=== PATIENT | male | born 1950 | race Caucasian/White ===

== ENCOUNTER 2017-01-13 11:46 | Emergency (ER) | payer MEDICARE ==
[~2017-01-13] VITALS: Ht 175.3 cm; Wt 65.0 kg
[~2017-01-13 11:46] MED LIST: ALLO300T2 PO; ASPI81TA82 PO; CARV6.25 PO; DABI150 PO; DILT180C51 PO; FENT25DI T-DERMAL; GABA300C3 PO; NITR0.4S SL; PACE200T4 PO; POTA75TA2 PO; PRIL40CA PO; TRIAPOW XX; VITA500S3 SL; ZANTTAB9 PO
[2017-01-13 11:49] VITALS: BP 109/63; PULSE 77; RESP 15; TEMP 98.2; O2SAT 97
== END 2017-01-13 14:24 | disposition left against medical advice (07) ==
LOC: NED 11:46
DX: R10.84 Generalized abdominal pain (principal)
CPT/HCPCS: 99281

== ENCOUNTER → 2017-03-04 | Day surgery (SDC) | payer MEDICARE ==
[~2017-03-04] MED LIST changes: +AMIO200T PO; +AMIO400T PO; +ASPI81CH CHEW; +CARV3.125 PO; +CARV6.252 PO; +DILT0.05 PO; +FENO160T PO; +FENT100D T-DERMAL; +GABA300C5 PO; +GENTAMICIN SULFATE 80 MG/2 ML VIAL ONE; +LACTATED RINGER'S 1000 ML INJ 1,000 ML ONE; +MIDAZOLAM HCL 2 MG/2 ML VIAL ONE; +MORPHINE SULFATE 4 MG/ML INJ ONE; +OMEP40CA2 PO; +ONDANSETRON HCL 4 MG/2 ML VIAL IV PUSH ONE; +PRAD150C PO; +PROPOFOL 200 MG/20 ML AMP IV ONE; +RAMI2.5C PO; +RANI150C PO; +ROSU10 PO; +SAW450CA2 PO; +SODIUM CHLORIDE 0.9% 100 ML ADDBAG IV ONE
--- NOTE | 2017-03-04 17:35 | TN ---
cc: YOLANDA MORAN M.D. DATE OF SURGERY 03/04/17 PREOPERATIVE DIAGNOSIS Proximal left ureteral calculus (ICD-10 code N20.1). POSTOPERATIVE DIAGNOSIS Left renal calculus (ICD-10 code of N20.0). PROCEDURE 1. Cystourethroscopy with left ureteroscopy and holmium laser lithotripsy (CPT code 13567). 2. Cystourethroscopy with left ureteral stent removal. INDICATION Mr. Slade is a 66-year-old gentleman who previously underwent urgent stent placement for 6 mm proximal ureteral stone at an outside institution and for insurance reasons had to transfer his care to us. He presents now for definitive treatment of the stone. Findings are normal urethra. The prostatic urethra shows bilateral hyperplasia with minimal obstruction and an open bladder neck. The ureteral orifice on the right normal size, shape and position, effluxing clear urine. On the left there is bullous edema surrounding the distal portion of a double-J ureteral stent with some encrustation of the stent. The remainder of the bladder was unremarkable, although, there was some small stone fragments within the bladder. No masses, other abnormal mucosa or significant trabeculation and no diverticula or cellules. The ureteroscopy on the left showed some bullous edema of the ureter but open all the is for the entire length of the ureter and the stone was found in the renal pelvis. PROCEDURE IN DETAIL The procedure was as follows, the procedure as well as the risks and benefits were explained to the patient. Informed consent was obtained. The patient was taken to the major operative theater where he was placed in supine position. The patient was identified as well as the operative site. A universal time-out was performed in the standard fashion. At this time general anesthetic and prophylactic intravenous antibiotics consisting of gentamicin 80 milligrams was administered. After adequate anesthetic his groin and genitalia were prepped and draped in the usual sterile fashion. At this time a 22.5 Telugu cystoscope with a 30 degree lens was inserted into the urethra and bladder with the above findings. Attention was directed to the left ureteral orifice where a grasping forceps was used to grasp the distal end of the left ureteral stent. It was pulled out to the meatus where attempts at passing a 0.035 inch guidewire through the opening were unsuccessful due to encrustation. At this time the cystoscope was placed back into the urethra alongside the stent which was left in place and then attention was directed to the left ureteral orifice where the 0.035 inch guidewire was able to be passed into the orifice and up the ureter and into the renal pelvis under fluoroscopic guidance. Prior to performing the procedure fluoroscopy showed that the stone was now in the renal pelvis and not in the proximal ureter, it must have been moved during the placement of the stent at the outside institution. At this time the cystoscope was removed as was the stent and a semi rigid mini ureteroscope was then placed under direct vision up the ureter, all the way traversing the entire ureter and into the renal pelvis and note again confirming no stone identified within the ureter. Decision was made to use a flexible scope and perform lithotripsy of the stone since it was too big to basket. The ureteroscope was removed after the placement of another guidewire. At this time a flexible ureteroscope was then placed over the working wire up the ureter and into the renal pelvis. The working wire was removed. There was a safety wire that was attached to the drape, it was kept in place during the procedure. At this time using a holmium laser lithotripsy and a 273 micron fiber at a setting of 5 joules holmium laser lithotripsy was performed and the stone was fragmented into approximately 1 mm fragments. The renal pelvis was inspected. No additional stones were identified and there was no trauma to the renal pelvis. At that time a decision was made not to leave the stent. The ureteroscope was removed as well as the stent. The cystoscope placed back in the bladder after stone fragments were removed and sent for crystallographic analysis. The bladder was decompressed, cystoscope removed. The patient tolerated the procedure well, emerged from anesthetic without difficulty and transferred to the recovery room in stable condition to be discharged home when criteria is met. There are no obvious complications. MD SAWYER Benites/MICHEL /5:14 PM /5:23 PM
== END | disposition home or self-care (01) ==
LOC: ESDC 12:39
PROVIDERS: ATTEND Urology
DX: N20.1 Calculus of ureter (principal); N20.0 Calculus of kidney
CPT/HCPCS: 00918; 52353; 76000; J1580; J2250; J2270; J2405; J3010; J7120

== ENCOUNTER 2017-03-30 13:26 | Inpatient (IN) | payer MEDICARE ==
[~2017-03-30] VITALS: Ht 175.3 cm; Wt 64.0 kg
[2017-03-30] VITALS (11 sets, daily range): BP systolic 97–138; BP diastolic 64–79; PULSE 70–92; RESP 16–20; TEMP 98.2–99; O2SAT 95–98
[~2017-03-30 13:26] MED LIST changes: -AMIO200T PO; -AMIO400T PO; -ASPI81CH CHEW; -CARV3.125 PO; -CARV6.252 PO; -DILT0.05 PO; -FENO160T PO; -FENT100D T-DERMAL; -GABA300C5 PO; -GENTAMICIN SULFATE 80 MG/2 ML VIAL ONE; -LACTATED RINGER'S 1000 ML INJ 1,000 ML ONE; -MIDAZOLAM HCL 2 MG/2 ML VIAL ONE; -MORPHINE SULFATE 4 MG/ML INJ ONE; -OMEP40CA2 PO; -ONDANSETRON HCL 4 MG/2 ML VIAL IV PUSH ONE; -PRAD150C PO; -PROPOFOL 200 MG/20 ML AMP IV ONE; -RAMI2.5C PO; -RANI150C PO; -ROSU10 PO; -SAW450CA2 PO; -SODIUM CHLORIDE 0.9% 100 ML ADDBAG IV ONE
[2017-03-30] MEDS ORDERED: SODIUM CHLORIDE 0.9% FLUSH 10 ML FLUSH IVF PRN (13:45)
--- NOTE | 2017-03-30 13:58 | RADRPT ---
EXAM DATE/TIME: 03/30/2017 13:52 [facility] COMPARISON: No previous studies available for comparison. INDICATIONS : Chest pain. MEDICAL HISTORY : None. SURGICAL HISTORY : Pacemaker. ENCOUNTER: Initial ACUITY: 1 day PAIN SCORE: 10/29 LOCATION: Bilateral chest FINDINGS: No infiltrate, effusion or pneumothorax. Normal heart size. Cardiac pacer/defibrillator present. Thoracic aorta is mildly tortuous. CONCLUSION: No evidence of acute cardiopulmonary disease. Anshul Hickey MD on March 30, 2017 at 13:55 Board Certified Radiologist. This report was verified electronically.
[2017-03-30 14:15] LABS: AUTOMATED NEUTROPHIL # 3.6 TH/MM3 (1.8-7.7); BASOPHIL % 0.7 % (0.0-2.0); EOSINOPHIL # 0.3 TH/MM3 (0-0.4); EOSINOPHIL % 5.3 % (0.0-4.0); HEMATOCRIT 37.9 % (39.0-51.0); HEMO FLAGS DIFF FINAL; LYMPH % 24.2 % (9.0-44.0); LYMPHOCYTE # 1.4 TH/MM3 (1.0-4.8); MEAN CELL VOLUME 93.6 FL (80.0-100.0); MEAN CORPUSCULAR HEMOGLOBIN 32.3 PG (27.0-34.0); MEAN CORPUSCULAR HGB CONC 34.6 % (32.0-36.0); MONO % 9.7 % (0.0-8.0); NEUT % 60.1 % (16.0-70.0); PLATELET COUNT 216 TH/MM3 (150-450); RED BLOOD COUNT 4.05 MIL/MM3 (4.50-5.90); RED CELL DISTRIBUTION WIDTH 12.5 % (11.6-17.2); WHITE BLOOD COUNT 5.9 TH/MM3 (4.0-11.0)
--- NOTE | 2017-03-30 14:17 | PD ---
HPI Chief Complaint: Cardiac Complaint Time Seen by Provider: 13:38 Travel History International Travel<30 days: No Contact w/Intl Traveler<30days: No Traveled to known affect area: No History of Present Illness HPI 66-year-old male with history of CAD, status post CABG, A. fib, COPD, previous [facility], has a an AICD, presents to the ER because he states that his defibrillator fired 3 times this afternoon while he was getting out of the shower. He states that the first time, he felt a little dizzy, and was getting out of the shower when it fired. He states the second time was when he was trying to get his phone, and the third time was after he got done with making a phone call. He denies any chest pains, shortness of breath, palpitations, dizziness, or any other symptoms. Modifying Factors: None Associated Signs & Symptoms: Defibrillator fired 3 Risk Factors: Cardiac history PFSH Past Medical History Hx Anticoagulant Therapy: Yes (asa) Arthritis: Yes Asthma: Yes Atrial Fibrillation: Yes Blood Disorders: No Cancer: No Cardiac Catheterization: Yes Cardiovascular Problems: Yes (pacer) High Cholesterol: Yes Chemotherapy: No Chest Pain: No COPD: Yes Diabetes: No Endocrine: No Gastrointestinal Disorders: No Glaucoma: No Genitourinary: No Hepatitis: No Hiatal Hernia: No Hypertension: No Immune Disorder: No Musculoskeletal: Yes (multiple injuries) Neurologic: No Psychiatric: No Reproductive: No Respiratory: Yes (COPD) Integumentary: No Myocardial Infarction: Yes Radiation Therapy: No Thyroid Disease: No ?: Not Past Surgical History Abdominal Surgery: Yes (bilat hernia repair--10/17/08) Body Medical Devices: BRIGHT IN RIGHT UPPER LEG REMOVED Cardiac Surgery: No Coronary Artery Bypass Graft: Yes (x5) Ear Surgery: No Endocrine Surgery: No Eye Surgery: Yes (lens implants bilat) Genitourinary Surgery: No Gynecologic Surgery: No Neurologic Surgery: No Oral Surgery: No Thoracic Surgery: No Other Surgery: Yes (recent hernia surg--2 knee surg) Social History Alcohol Use: Yes Tobacco Use: Yes (1-1.5 PPD) Substance Use: No Allergies-Medications (Allergen,Severity, Reaction): Coded Allergies: No Known Allergies (Verified , 03/30/17) Reported Meds & Prescriptions Reported Meds & Active Scripts Active Reported Fenofibrate 160 Mg Tab 160 Mg PO DAILY Carvedilol 6.25 Mg Tab 6.25 Mg PO BID Crestor (Rosuvastatin Calcium) 10 Mg Tab 10 Mg PO DAILY Ranitidine (Ranitidine HCl) 150 Mg Cap 150 Mg PO BID Omeprazole 40 Mg Cap 40 Mg PO DAILY Saw Rowlett (Serenoa Repens) 450 Mg Cap 450 Mg PO DAILY Fentanyl Patch 72 HR (Fentanyl) 100 Mcg/Hr Patch 100 Mcg T-DERMAL Q72H Remove old patch when new one placed. Pradaxa (Dabigatran) 150 Mg Cap 150 Mg PO BID Review of Systems Except as stated in HPI: all other systems reviewed are Neg Physical Exam Narrative GENERAL: Well-developed elderly white male patient currently in no acute distress but awake and oriented 3. SKIN: Focused skin assessment warm/dry. HEAD: Atraumatic. Normocephalic. EYES: Pupils equal and round. No scleral icterus. No injection or drainage. ENT: No nasal bleeding or discharge. Mucous membranes pink and moist. NECK: Trachea midline. No JVD. CARDIOVASCULAR: Fast and irregularly irregular. RESPIRATORY: No accessory muscle use. Clear to auscultation. Breath sounds equal bilaterally. GASTROINTESTINAL: Abdomen soft, non-tender, nondistended. Hepatic and splenic margins not palpable. MUSCULOSKELETAL: No obvious deformities. No clubbing. No cyanosis. No edema. NEUROLOGICAL: Awake and alert. No obvious cranial nerve deficits. Motor grossly within normal limits. Normal speech. PSYCHIATRIC: Appropriate mood and affect; insight and judgment normal. Data Data Last Documented VS Vital Signs Date Time Temp Pulse Resp B/P Pulse Ox O2 Delivery O2 Flow Rate FiO2 03/30/17 14:36 75 18 97/64 97 03/30/17 13:53 Room Air 03/30/17 13:43 99.0 Orders Electrocardiogram (03/30/17 13:38) Ckmb (Isoenzyme) Profile (03/30/17 13:38) Complete Blood Count With Diff (03/30/17 13:38) Comprehensive Metabolic Panel (03/30/17 13:38) Magnesium (Mg) (03/30/17 13:38) Prothrombin Time / Inr (Pt) (03/30/17 13:38) Act Partial Throm Time (Ptt) (03/30/17 13:38) Troponin I (03/30/17 13:38) Chest, Single Ap (03/30/17 13:38) Ecg Monitoring (03/30/17 13:38) Bilateral Bp Monitoring (03/30/17 13:38) Iv Access Insert/Monitor (03/30/17 13:38) Oximetry (03/30/17 13:38) Oxygen Administration (03/30/17 13:38) Sodium Chloride 0.9% Flush (Ns Flush) (03/30/17 13:45) Place In Observation (03/30/17 ) Vital Signs (Adult) HERIBERTO.Q4H (03/30/17 15:38) Activity Oob Ad Chhaya (03/30/17 15:38) Running Instructor / Telemetry HERIBERTO.Q8H (03/30/17 15:38) Intake + Output 06,14,22 (03/30/17 15:38) Resp Oxygen Gentry C Titrat 1-4 L (03/30/17 ) Sodium Chloride 0.9% Flush (Ns Flush) (03/30/17 21:00) Labs Laboratory Tests Test 03/30/17 13:55 White Blood Count 5.9 TH/MM3 Red Blood Count 4.05 MIL/MM3 Hemoglobin 13.1 GM/DL Hematocrit 37.9 % Mean Corpuscular Volume 93.6 FL Mean Corpuscular Hemoglobin 32.3 PG Mean Corpuscular Hemoglobin 34.6 % Concent Red Cell Distribution Width 12.5 % Platelet Count 216 TH/MM3 Mean Platelet Volume 9.5 FL Neutrophils (%) (Auto) 60.1 % Lymphocytes (%) (Auto) 24.2 % Monocytes (%) (Auto) 9.7 % Eosinophils (%) (Auto) 5.3 % Basophils (%) (Auto) 0.7 % Neutrophils # (Auto) 3.6 TH/MM3 Lymphocytes # (Auto) 1.4 TH/MM3 Monocytes # (Auto) 0.6 TH/MM3 Eosinophils # (Auto) 0.3 TH/MM3 Basophils # (Auto) 0.0 TH/MM3 CBC Comment DIFF FINAL Differential Comment Prothrombin Time 11.7 SEC Prothromb Time International 1.1 RATIO Ratio Activated Partial 31.3 SEC Thromboplast Time Sodium Level 141 MEQ/L Potassium Level 4.7 MEQ/L Chloride Level 107 MEQ/L Carbon Dioxide Level 26.9 MEQ/L Anion Gap 7 MEQ/L Blood Urea Nitrogen 16 MG/DL Creatinine 1.18 MG/DL Estimat Glomerular Filtration 62 ML/MIN Rate Random Glucose 92 MG/DL Calcium Level 8.4 MG/DL Magnesium Level 1.9 MG/DL Total Bilirubin 0.4 MG/DL Aspartate Amino Transf 22 U/L (AST/SGOT) Alanine Aminotransferase 15 U/L (ALT/SGPT) Alkaline Phosphatase 88 U/L Total Creatine Kinase 32 U/L Troponin I LESS THAN 0.02 NG/ML Total Protein 7.0 GM/DL Albumin 3.6 GM/DL MDM Medical Decision Making Medical Screen Exam Complete: Yes Emergency Medical Condition: Yes Medical Record Reviewed: Yes Interpretation(s) EKG shows atrial flutter with rapid ventricular response at a rate of 140 bpm. Laboratory Tests Test 03/30/17 13:55 Red Blood Count 4.05 MIL/MM3 (4.50-5.90) Hematocrit 37.9 % (39.0-51.0) Monocytes (%) (Auto) 9.7 % (0.0-8.0) Eosinophils (%) (Auto) 5.3 % (0.0-4.0) Prothrombin Time 11.7 SEC (9.8-11.6) Activated Partial 31.3 SEC Thromboplast Time (24.3-30.1) Estimat Glomerular Filtration 62 ML/MIN (>89) Rate Calcium Level 8.4 MG/DL (8.5-10.1) Total Creatine Kinase 32 U/L (39-308) Troponin I LESS THAN 0.02 NG/ML (0.02-0.05) Last 24 hours Impressions Chest X-Ray 03/30/17 1338 Signed Impressions: Service Date/Time: Thursday, March 30, 2017 13:52 - CONCLUSION: No evidence of acute cardiopulmonary disease. Anshul Hickey MD Differential Diagnosis Defibrillator fired 3evaluate for dysrhythmia, rule out metabolic issues versus ACS Narrative Course Patient is not symptomatic currently. He denies any chest pains. EKG shows that he is having atrial flutter but the rate slows down on its own I did not need to give him any further medications. His lab work is not significant for significant metabolic issues. At this point, case was discussed with family practice resident service for admission for further evaluation. Pacemaker episodes been called to evaluate the case. Diagnosis Primary Impression: Defibrillator discharge Admitting Information Admitting Physician Requests: Admit Soonthjose,Rewadee MD Mar 30, 2017 14:17
[2017-03-30 14:29] LABS: ALT (GPT) 15 U/L (12-78); ANION GAP 7 MEQ/L (5-15); AST (GOT) 22 U/L (15-37); BICARBONATE 26.9 MEQ/L (21.0-32.0); BLOOD UREA NITROGEN 16 MG/DL (7-18); CHLORIDE 107 MEQ/L (98-107); GLOMERULAR FILTRATION RATE 62 ML/MIN (>89); MAGNESIUM 1.9 MG/DL (1.5-2.5); POTASSIUM 4.7 MEQ/L (3.5-5.1); SODIUM (NA) 141 MEQ/L (136-145)
[2017-03-30 14:30] LABS: APTT (PATIENT) 31.3 SEC (24.3-30.1); INTERNATIONAL NORMALIZED RATIO 1.1 RATIO; PROTHROMBIN TIME - PATIENT 11.7 SEC (9.8-11.6)
[2017-03-30 14:33] LABS: ALKALINE PHOSPHATASE 88 U/L (45-117); TOTAL BILIRUBIN ADULT 0.4 MG/DL (0.2-1.0)
[2017-03-30 14:36] LABS: CREATINE KINASE 32 U/L (39-308)
[2017-03-30] MEDS ORDERED: PRAD150C PO (14:41)
[2017-03-30] MEDS ORDERED: FENT100D T-DERMAL (14:41)
[2017-03-30] MEDS ORDERED: CARV6.252 PO (14:41)
[2017-03-30] MEDS ORDERED: FENO160T PO (14:41)
[2017-03-30] MEDS ORDERED: SAW450CA2 PO (14:41)
[2017-03-30] MEDS ORDERED: OMEP40CA2 PO (14:41)
[2017-03-30] MEDS ORDERED: RANI150C PO (14:41)
[2017-03-30] MEDS ORDERED: ROSU10 PO (14:41)
--- NOTE | 2017-03-30 15:51 | HHI.HP ---
HPI Service Family Medicine Primary Care Physician No Primary Care Physician Admission Diagnosis defibrillator fired 3 Diagnoses: International Travel<30 Days: No Contact w/Intl Traveler<30days: No Known Affected Area: No History of Present Illness Mr. Slade is a 66 y/o M with history of atrial fibrillation and MD s/p 5x catheterizations with sent placement presents s/p his internal cardiac defibrillator firing x3. He states that earlier today he was getting out of the shower when his ICD fired 3 times in a row approximately 3 minutes apart. He was able to walk out of the bathroom and call 911 before the ICD fired the third and final time. Before the ICD went off he denied any symptoms such as tachycardia, angina, or palpitations. He was "dizzy" after the episode, but did not lose consciousness or fall. He reports that this is the second time his ICD has gone off. The first time the ICD fired 5 times, and again he reports he was asymptomatic at that time. He is a patient of Dr. Warner, cardiology. (Darian Trevino MD R1) Review of Systems Constitutional: DENIES: Fever, Chills Eyes: DENIES: Blurred vision, Double Vision Ears, nose, mouth, throat: DENIES: Throat pain, Running Nose Respiratory: DENIES: Cough, Shortness of breath Cardiovascular: COMPLAINS OF: Chest pain (Tightness at ICD site), DENIES: Palpitations Gastrointestinal: DENIES: Abdominal pain, Diarrhea, Nausea, Vomiting Genitourinary: DENIES: Dysuria Musculoskeletal: COMPLAINS OF: Back pain (Chronic lower back pain), DENIES: Joint pain Integumentary: DENIES: Rash Hematologic/lymphatic: DENIES: Lymphadenopathy Neurologic: DENIES: Headache Psychiatric: DENIES: Mood changes (Darian Trevino MD R1) Past Family Social History Past Medical History Atrial fibrillation History of MD with ICD placed Past Surgical History Bilateral hernia repair Job in right leg Cath 5 with stenting Cataract surgery (Darain Trevino MD R1) Allergies: Coded Allergies: No Known Allergies (Verified , 03/30/17) Family History Mother - Alzheimer's, Father - MD at 62, Sister - from malignancy Sister - gallbladder problems Social History Smoke - Cigars currently with history of tobacco, 34 years Alcohol - Occasional use, 4-5 beers per occasion Illicit - History, but denies any recent use, last use in 12/26 Lives at home with significant other. Served in [employer]. (Darian Trevino MD R1) Physical Exam Vital Signs Vital Signs Date Time Temp Pulse Resp B/P Pulse Ox O2 Delivery O2 Flow Rate FiO2 03/30/17 14:36 75 18 97/64 97 03/30/17 13:53 86 18 103/79 97 Room Air 104/77 03/30/17 13:53 97 Room Air 03/30/17 13:43 146 20 97 Room Air 03/30/17 13:43 99.0 90 18 104/74 97 Room Air 03/30/17 13:34 99.0 92 20 104/74 96 Physical Exam GENERAL: 66-year-old male lying in bed in no acute distress SKIN: Warm and dry. No rash. HEENT: Atraumatic, normocephalic with EOMI. PERRLA. Oropharynx clear with no erythema or exudate. No rhinorrhea. No LAD or JVD appreciated. CARDIOVASCULAR: Regular rate and rhythm without obvious murmurs, gallops, or rubs. ICD located on the left chest without tenderness to palpation RESPIRATORY: Clear to auscultation bilaterally with no CRW. No increased work of breathing. GASTROINTESTINAL: Abdomen soft, non-tender, nondistended with positive bowel sounds. No masses or hepatosplenomegaly appreciated MUSCULOSKELETAL: No cyanosis or edema. Strength grossly WNL. No calf tenderness. BACK: Nontender without obvious deformity. No CVA tenderness. NEURO/PSYCH: Afocal. Awake, alert, and oriented x3. Normal speech and insight. Grossly within normal limits. Laboratory Laboratory Tests Test 03/30/17 13:55 White Blood Count 5.9 Red Blood Count 4.05 Hemoglobin 13.1 Hematocrit 37.9 Mean Corpuscular Volume 93.6 Mean Corpuscular Hemoglobin 32.3 Mean Corpuscular Hemoglobin 34.6 Concent Red Cell Distribution Width 12.5 Platelet Count 216 Mean Platelet Volume 9.5 Neutrophils (%) (Auto) 60.1 Lymphocytes (%) (Auto) 24.2 Monocytes (%) (Auto) 9.7 Eosinophils (%) (Auto) 5.3 Basophils (%) (Auto) 0.7 Neutrophils # (Auto) 3.6 Lymphocytes # (Auto) 1.4 Monocytes # (Auto) 0.6 Eosinophils # (Auto) 0.3 Basophils # (Auto) 0.0 CBC Comment DIFF FINAL Differential Comment Prothrombin Time 11.7 Prothromb Time International 1.1 Ratio Activated Partial 31.3 Thromboplast Time Sodium Level 141 Potassium Level 4.7 Chloride Level 107 Carbon Dioxide Level 26.9 Anion Gap 7 Blood Urea Nitrogen 16 Creatinine 1.18 Estimat Glomerular Filtration 62 Rate Random Glucose 92 Calcium Level 8.4 Magnesium Level 1.9 Total Bilirubin 0.4 Aspartate Amino Transf 22 (AST/SGOT) Alanine Aminotransferase 15 (ALT/SGPT) Alkaline Phosphatase 88 Total Creatine Kinase 32 Troponin I LESS THAN 0.02 Total Protein 7.0 Albumin 3.6 (Darian Trevino MD R1) Result Diagram: 03/30/17 1355 03/30/17 1355 Imaging Last 72 hours Impressions Chest X-Ray 03/30/17 1338 Signed Impressions: Service Date/Time: Friday, March 30, 2017 13:52 - CONCLUSION: No evidence of acute cardiopulmonary disease. Anshul Hickey MD (Darian Trevino MD R1) Assessment and Plan Assessment and Plan Mr. Slade is a 66 y/o M with history of atrial fibrillation and MD s/p 5x catheterizations with sent placement presents s/p his internal cardiac defibrillator firing x3. He will be admitted for observation and possible cardiac workup pending clinical course. Code Status FULL CODE Discussed Condition With Dr. Green, ER Physician Dr. Melecio Ng (Darian Trevino MD R1) Attending Attestation Patient seen and examined. Case reviewed and discussed with the resident team. Agree with plan of care as discussed with me and documented in the resident note. (Ronda Majano MD) Problem List: (1) Defibrillator discharge Status: Acute Plan: Patient with ICD which fired 3 times this morning without symptoms per patient report. Second time his ICD has fired with patient reporting he was asymptomatic beforehand. Per ER staff, ICD interrogation showed defibrillation administered secondary to tachycardia. Chest x-ray: No cardiopulmonary disease CBC: Within normal limits CMP: Within normal limits BMP: Pending Troponin: 0.02, trend with EKG 2 every 6 hours Coagulation panel: PT 11.7, INR 1.1, PTT 31.3 Consult cardiology, appreciate recommendations Cardiac telemetry Echocardiogram: Pending Medications: Continue Pradaxa 150 mg twice a day Continue Coreg 6.25 mg twice a day (2) Atrial fibrillation Status: Acute Plan: Patient with history of atrial fibrillation anticoagulated on Pradaxa. Currently rate controlled. Please see plan as above (3) Chronic disease Status: Acute Plan: BPHcontinue saw palmetto Hyperlipidemiacontinue rosuvastatin, fenofibrate GERDcontinue omeprazole 40 mg daily Chronic back paincontinue fentanyl patch 100 g every third day (4) No contraindication to deep vein thrombosis (DVT) prophylaxis Status: Acute Plan: Patient anticoagulated on Pradaxa for atrial fibrillation (5) Nutrition, metabolism, and development symptoms Status: Acute Plan: Diet: Heart healthy as tolerated Fluids: Tolerating fluids by mouth Electrolytes: Within normal limits, continue to monitor Prophylaxis: DuoNeb's when necessary for shortness of breath, Zofran when necessary for nausea or vomiting, Tylenol when necessary for pain or fever, Alyse -Colace when necessary for constipation, clonidine when necessary for BP greater than 180/100 (Darian Trevino MD R1) Darian Trevino MD R1 Mar 30, 2017 15:51 Ronda Majano MD Mar 31, 2017 11:43
--- NOTE | 2017-03-30 16:26 | HHI.FPPN ---
Subjective Remarks Patient was seen, examined and discussed with medicine team. This is a 66-year-old male, patient of Dr. Julio C La, who was in the shower this morning and when he exited the shower, felt a little bit of dizziness but noted that his AICD fired. He went to the other room to use his phone and it fired again, he did call 911 and after the phone call his AICD fired the third time. He denies having any symptoms other than the aforementioned dizziness. No chest pain, no palpitations or tachycardia, no nausea or sweats, and the only complaint he has is that he has a little bit of soreness in the area of where his pacer defibrillator is implanted. He does have history of [place] in 2008, he had a heart catheterization with placement of 5 stents. History of COPD and atrial fibrillation. Please see history and physical examination for this admission for additional historical details including past, family, social history and review of systems. He does drink occasional alcohol, long tobacco history, currently no illicits. He is a [place] . He has chronic low back pain for which she uses fentanyl patch 100 g every 3 days. Objective Vitals Vital Signs Date Time Temp Pulse Resp B/P Pulse Ox O2 Delivery O2 Flow Rate FiO2 03/30/17 14:36 75 18 97/64 97 03/30/17 13:53 86 18 103/79 97 Room Air 104/77 03/30/17 13:53 97 Room Air 03/30/17 13:43 146 20 97 Room Air 03/30/17 13:43 99.0 90 18 104/74 97 Room Air 03/30/17 13:34 99.0 92 20 104/74 96 Result Diagram: 03/30/17 1355 03/30/17 1355 Other Results Laboratory Tests Test 03/30/17 13:55 Red Blood Count 4.05 MIL/MM3 Hematocrit 37.9 % Monocytes (%) (Auto) 9.7 % Eosinophils (%) (Auto) 5.3 % Prothrombin Time 11.7 SEC Activated Partial 31.3 SEC Thromboplast Time Estimat Glomerular Filtration 62 ML/MIN Rate Calcium Level 8.4 MG/DL Total Creatine Kinase 32 U/L Troponin I LESS THAN 0.02 NG/ML Imaging Last Impressions Chest X-Ray 03/30/17 5488 Signed Impressions: Service Date/Time: Thursday, March 30, 2017 13:52 - CONCLUSION: No evidence of acute cardiopulmonary disease. Anshul Hickey MD Objective Remarks O. CONSTITUTIONAL/GEN: normally nourished, in NAD. EYES: conjunctiva normal, PERRLA, EOMI. ENT: Mouth and pharynx normal. NECK: Supple LUNGS: clear A-P, respiratory effort is normal. CARDIOVASCULAR: RR without murmur or gallop. No significant edema. GI/ABD: soft without masses, without organomegaly. Active bowel sounds : no CVA tenderness NEURO: No focal deficits. SKIN: color normal, no rashes noted. Multiple tattoos HEME/LYMPH: no bruising, petechia or significant adenopathy MUSC: back is normal in appearance. Extremities are normal in appearance. PSYCH/MENTAL STATUS: Alert and oriented x 3. A/P Assessment and Plan 66-year-old male with extensive cardiac history here today because his implanted defibrillator fired 3 times at home Attending Attestation Patient seen and examined. Case reviewed and discussed with the resident team. Agree with plan of care as discussed with me and documented in the resident note. Ronda Majano MD Mar 30, 2017 16:26
[2017-03-30] MEDS ORDERED: fentaNYL 100 MCG/HR PATCH T-DERMAL SCH (17:00)
[2017-03-30] MEDS ORDERED: RESP: ALBUTEROL 2.5 MG/IPRATROPIUM 0.5 MG NEB (PRN) NEB (17:15)
[2017-03-30] MEDS ORDERED: DOCUSATE SODIUM 50 MG/SENNA 8.6 MG TAB PO PRN (17:15)
[2017-03-30] MEDS ORDERED: cloNIDine HCL 0.1 MG TAB PO PRN (17:15)
[2017-03-30] MEDS ORDERED: ONDANSETRON ODT 4 MG TAB PO PRN (17:15)
[2017-03-30] MEDS ORDERED: ACETAMINOPHEN 500 MG CPLT PO PRN (17:15)
[2017-03-30] MEDS ORDERED: DILT0.05 PO (17:17)
[2017-03-30] MEDS ORDERED: GABA300C5 PO (17:17)
[2017-03-30] MEDS ORDERED: RAMI2.5C PO (17:17)
[2017-03-30] MEDS ORDERED: ASPI81CH CHEW (17:17)
--- NOTE | 2017-03-30 19:40 | HHI.DCPOC ---
Discharge Care Plan Diagnosis: (1) Defibrillator discharge Goals to Promote Your Health * To prevent worsening of your condition and complications * To maintain your health at the optimal level Directions to Meet Your Goals Take your medications as prescribed Follow your dietary instruction Follow activity as directed Keep your appointments as scheduled Take your immunizations and boosters as scheduled If your symptoms worsen call your PCP, if no PCP go to Urgent Care Center or Emergency Room Smoking is Dangerous to Your Health. Avoid second hand smoke Call the 24-hour hour crisis hotline for domestic abuse at Darian Trevino MD R1 Mar 30, 2017 19:40
[2017-03-30] MEDS: SODIUM CHLORIDE 0.9% FLUSH 10 ML FLUSH IV FLUSH SCH (20:31)
[2017-03-30] MEDS: FAMOTIDINE 20 MG TAB PO SCH (20:31)
[2017-03-30] MEDS: DABIGATRAN ETEXILATE 150 MG CAP PO SCH (20:31)
[2017-03-30] MEDS: CARVEDILOL 6.25 MG TAB PO SCH (20:31)
[2017-03-30] MEDS: GABAPENTIN 300 MG CAP PO SCH (20:31)
[2017-03-31] VITALS (28 sets, daily range): BP systolic 74–105; BP diastolic 50–73; PULSE 59–95; RESP 18–20; TEMP 97.9–98.8; O2SAT 94–98
[2017-03-31 02:23] LABS: HEMATOCRIT 35.6 % (39.0-51.0); MEAN CELL VOLUME 93.5 FL (80.0-100.0); MEAN CORPUSCULAR HEMOGLOBIN 32.1 PG (27.0-34.0); MEAN CORPUSCULAR HGB CONC 34.4 % (32.0-36.0); PLATELET COUNT 195 TH/MM3 (150-450); RED BLOOD COUNT 3.81 MIL/MM3 (4.50-5.90); RED CELL DISTRIBUTION WIDTH 12.7 % (11.6-17.2); REVIEW FLAG FINAL; WHITE BLOOD COUNT 6.2 TH/MM3 (4.0-11.0)
[2017-03-31 03:25] LABS: MAGNESIUM 2.1 MG/DL (1.5-2.5); POTASSIUM 3.8 MEQ/L (3.5-5.1)
[2017-03-31] MEDS ORDERED: FENOFIBRATE 145 MG TAB PO SCH (09:00)
[2017-03-31] MEDS ORDERED: NON-FORMULARY DRUG (Saw Palmetto (Serenoa Repens) 450 MG) PO SCH (09:00)
[2017-03-31] MEDS ORDERED: DILTIAZEM-CD 180 MG CAP ER PO SCH (09:00)
[2017-03-31] MEDS: DABIGATRAN ETEXILATE 150 MG CAP PO SCH ×2 (09:35→21:04)
[2017-03-31] MEDS: FAMOTIDINE 20 MG TAB PO SCH ×2 (09:35→21:04)
[2017-03-31] MEDS: PANTOPRAZOLE SOD 40 MG DELAYED RELEASE TAB PO SCH (09:35)
[2017-03-31] MEDS: ASPIRIN 81 MG CHEW TAB CHEW SCH (09:36)
[2017-03-31] MEDS: RAMIPRIL 2.5 MG CAP PO SCH (09:36)
[2017-03-31] MEDS: ATORVASTATIN 20 MG TAB PO SCH (09:36)
[2017-03-31] MEDS: CARVEDILOL 6.25 MG TAB PO SCH ×3 (09:36→22:13)
[2017-03-31] MEDS: SODIUM CHLORIDE 0.9% FLUSH 10 ML FLUSH IV FLUSH SCH ×2 (09:36→21:00)
--- NOTE | 2017-03-31 11:38 | EKG ---
Date Performed: 03/30/2017 Time Performed: 13:39:21 PTAGE: 66 years EKG: Atrial tachycardia with 2:1 conduction Atrial tachycardia is new from the old tracing. PREVIOUS TRACING : 06/14/2016 06.04 DOCTOR: Russell Cam Interpretating Date/Time 03/31/2017 11:38:01
--- NOTE | 2017-03-31 11:38 | EKG ---
Date Performed: 03/31/2017 Time Performed: 02:01:36 PTAGE: 66 years EKG: Sinus rhythm with borderline 1st degree A-V block Prolonged QT interval Low QRS voltages in limb leads Borderline ECG Patient is no longer in atrial tachycardia compared to the prior tracing. PREVIOUS TRACING : 03/30/2017 13.39 DOCTOR: Russell Cam Interpretating Date/Time 03/31/2017 11:38:25
--- NOTE | 2017-03-31 12:04 | HHI.FPPN ---
Subjective Remarks Patient seen and examined this morning by medical team. No acute events overnight with vital signs stable. Patient reports that he remained asymptomatic overnight with no ICD discharges. He is very concerned as he feels that his ICD is discharging on its own without clinical indication. Medical team explained that patient was tachycardic prior to discharges yesterday per ER staff, however patient states he was non-tachycardic prior to that episode "felt absolutely fine." Otherwise he has no complaints and denies any fevers, chills, shortness of breath, chest pain, NVD, abdominal pain, or calf tenderness. (Darian Trevino MD R1) Objective Vitals Vital Signs Date Time Temp Pulse Resp B/P Pulse Ox O2 Delivery O2 Flow Rate FiO2 03/31/17 11:30 98.8 76 20 100/68 95 03/31/17 10:05 98 21 03/31/17 08:00 98.5 77 18 101/73 94 03/31/17 06:16 59 03/31/17 05:02 74 03/31/17 04:00 78 03/31/17 03:59 82 90/62 95 03/31/17 03:00 74 03/31/17 02:00 72 03/31/17 01:00 66 03/31/17 00:45 97.9 70 93/63 95 03/31/17 00:00 72 03/30/17 23:52 95 03/30/17 23:00 70 03/30/17 22:00 72 03/30/17 21:00 78 03/30/17 20:00 76 03/30/17 19:00 76 03/30/17 19:00 98.2 84 103/65 98 03/30/17 18:48 98.5 82 20 138/79 98 03/30/17 14:36 75 18 97/64 97 03/30/17 13:53 86 18 103/79 97 Room Air 104/77 03/30/17 13:53 97 Room Air 03/30/17 13:43 146 20 97 Room Air 03/30/17 13:43 99.0 90 18 104/74 97 Room Air 03/30/17 13:34 99.0 92 20 104/74 96 I/O 03/30/17 03/30/17 03/30/17 03/31/17 03/31/17 03/31/17 07:00 15:00 23:00 07:00 15:00 23:00 Intake Total 240 ml Balance 240 ml Intake Oral 240 ml # Voids 3 (Darian Trevino MD R1) Result Diagram: 03/31/1715103/31/17151 Objective Remarks GENERAL: Well-developed, well-nourished 66-year-old male lying in bed in no acute distress. SKIN: Warm and dry. No rash. HEENT: Atraumatic, normocephalic with EOMI. MMM. No JVD or LAD appreciated. No rhinorrhea. CARDIOVASCULAR: Regular rate and rhythm without obvious murmurs, gallops, or rubs. ICD in place on left chest. RESPIRATORY: Clear to auscultation bilaterally no CRW. No increased work of breathing. GASTROINTESTINAL: Abdomen soft, non-tender, nondistended with positive bowel sounds. No masses appreciated. MUSCULOSKELETAL: No cyanosis or edema. Strength grossly WNL. BACK: Nontender without obvious deformity. No CVA tenderness. NEURO/PSYCH: Afocal. Awake, alert, and oriented x3. Normal speech and interaction with examiners. (Darian Trevino MD R1) A/P Assessment and Plan Mr. Slade is a 66 y/o M with history of atrial fibrillation and [place] s/p 5x catheterizations with sent placement presents s/p his internal cardiac defibrillator firing x3. He will be admitted for observation and possible cardiac workup pending clinical course. Discharge Planning Pending cardiology recommendations. (Darian Trevino MD R1) Attending Attestation Patient seen and examined. Case reviewed and discussed with the resident team. Agree with plan of care as discussed with me and documented in the resident note. (Ronda Majano MD) Problem List: (1) Defibrillator discharge Status: Acute Plan: Patient with ICD which fired 3 times this morning without symptoms per patient report. Second time his ICD has fired with patient reporting he was asymptomatic beforehand. Per ER staff, ICD interrogation showed defibrillation administered secondary to tachycardia. Chest x-ray: No cardiopulmonary disease CBC: Within normal limits CMP: Within normal limits BMP: 45 Troponin: <0.02, 0.04, 0.02 Coagulation panel: PT 11.7, INR 1.1, PTT 31.3 Consult cardiology, appreciate recommendations Cardiac telemetry, reviewed Echocardiogram: Pending Medications: Continue Pradaxa 150 mg twice a day Continue Coreg 6.25 mg twice a day (2) Atrial fibrillation Status: Acute Plan: Patient with history of atrial fibrillation anticoagulated on Pradaxa. Currently rate controlled. Please see plan as above (3) Chronic disease Status: Acute Plan: BPHcontinue saw palmetto Hyperlipidemiacontinue rosuvastatin, fenofibrate GERDcontinue omeprazole 40 mg daily Chronic back paincontinue fentanyl patch 100 g every third day (4) No contraindication to deep vein thrombosis (DVT) prophylaxis Status: Acute Plan: Patient anticoagulated on Pradaxa for atrial fibrillation (5) Nutrition, metabolism, and development symptoms Status: Acute Plan: Diet: Heart healthy as tolerated Fluids: Tolerating fluids by mouth Electrolytes: Within normal limits, continue to monitor Prophylaxis: DuoNeb's when necessary for shortness of breath, Zofran when necessary for nausea or vomiting, Tylenol when necessary for pain or fever, Alyse -Colace when necessary for constipation, clonidine when necessary for BP greater than 180/100 (Darian Trevino MD R1) Darian Trevino MD R1 Mar 31, 2017 12:04 Ronda Majano MD Mar 31, 2017 13:47
--- NOTE | 2017-03-31 12:14 | ECHRPT ---
Indication: Heart failure, unspecified CONCLUSIONS Normal left ventricular size. Mild concentric left ventricular hypertrophy. The left ventricular systolic function is normal with an estimated ejection fraction in the range of 60-65%. No regional wall motion abnormalities are present. Doppler parameters are consistent with impaired left ventricular relaxtion (grade 1 diastolic dysfun ction). Mildly dilated proximal ascending aorta. Measured at 3.8 cm. The right atrial size is mildly dilated. There is a pacemaker wire present in the right atrial cavity. Normal right ventricular size and systolic function. A pacemaker wire is noted. BP: 97 / 64 HR: 75 Rhythm: Sinus MEASUREMENTS (Male / Female) Normal Values Technical Quality:Fair 2D ECHO LV Diastolic Diameter PLAX 4.4 cm 4.2 - 5.9 / 3.9 - 5.3 cm LV Systolic Diameter PLAX 3.3 cm IVS Diastolic Thickness 1.1 cm 0.6 - 1.0 / 0.6 - 0.9 cm LVPW Diastolic Thickness 1.0 cm 0.6 - 1.0 / 0.6 - 0.9 cm LV Relative Wall Thickness 0.5 RV Internal Dim ED PLAX 3.0 cm LVOT Diameter 1.9 cm Ascending Aorta Diameter 3.8 cm M-MODE Aortic Root Diameter MM 3.0 cm LA Systolic Diameter MM 2.9 cm LA Ao Ratio MM 1.0 AV Cusp Separation MM 2.0 cm DOPPLER AV Peak Velocity 101.0 cm/s AV Peak Gradient 4.1 mmHg LVOT Peak Velocity 83.9 cm/s LVOT Peak Gradient 2.8 mmHg AV Area Cont Eq pk 2.4 cm Mitral E Point Velocity 80.0 cm/s Mitral A Point Velocity 42.9 cm/s Mitral E to A Ratio 1.9 LV E' Lateral Velocity 9.8 cm/s Mitral E to LV E' Lateral Ratio 8.2 LV E' Septal Velocity 6.1 cm/s Mitral E to LV E' Septal Ratio 13.0 TR Peak Velocity 187.0 cm/s TR Peak Gradient 14.0 mmHg PV Peak Velocity 81.4 cm/s PV Peak Gradient 2.7 mmHg FINDINGS LEFT VENTRICLE Normal left ventricular size. Mild concentric left ventricular hypertrophy. The left ventricular systolic function is normal with an estimated ejection fraction in the range of 60-65%. No regional wall motion abnormalities are present. Doppler parameters are consistent with impaired left ventricular relaxtion (grade 1 diastolic dysfun ction). RIGHT VENTRICLE Normal right ventricular size and systolic function. A pacemaker wire is noted. LEFT ATRIUM The left atrial size is normal. RIGHT ATRIUM The right atrial size is mildly dilated. There is a pacemaker wire present in the right atrial cavity. ATRIAL SEPTUM Normal atrial septal thickness without atrial level shunting by limited color doppler interrogation. AORTA Mildly dilated proximal ascending aorta. Measured at 3.8 cm. MITRAL VALVE Structurally normal mitral valve. No mitral valve stenosis or regurgitation. AORTIC VALVE Trileaflet aortic valve. No aortic valve stenosis or regurgitation. TRICUSPID VALVE Structurally normal tricuspid valve. There is trace tricuspid valve regurgitation. The estimated pulmonary arterial pressure is 24 mmHg. PULMONARY VALVE The pulmonary valve is not well visualized. VESSELS The inferior vena cava is normal in size. PERICARDIUM No pericardial effusion. Scott Montiel MD, FACC (Electronically Signed) Final Date:31 March 2017 12:13
[2017-03-31] MEDS: AMIODARONE 200 MG TAB PO SCH (19:15)
[2017-03-31] MEDS: GABAPENTIN 300 MG CAP PO SCH (21:04)
[2017-04-01] VITALS (25 sets, daily range): BP systolic 88–108; BP diastolic 50–75; PULSE 56–91; RESP 18–20; TEMP 97.7–98.3; O2SAT 93–98
--- NOTE | 2017-04-01 07:44 | MB ---
cc: MARA PHILLIPS MD, HANSCY M.D. HOWARD, SUSAN W. M.D. DATE OF CONSULTATION: 03/31/2017 REASON FOR CONSULTATION Recurrent defibrillatory shock. HISTORY OF PRESENT ILLNESS Mr. Slade is a 66-year-old gentleman with a history of congestive heart failure, atrial fibrillation, previous ablation May 2016, admitted to the emergency room due to tachyarrhythmia and defibrillatory shock. The gentleman came out of the shower and received three shocks. Previous to that he experienced some dizziness and near-syncope. Interrogation of the device shocks were appropriate. I was consulted for evaluation and management. The chart was reviewed. The patient was evaluated. ALLERGIES None. SOCIAL HISTORY The gentleman still smokes 1-1/2 packs of cigarettes a day and is still drinking. FAMILY HISTORY Noncontributory to his current medical condition. MEDICATIONS 1. Fenofibrate. 2. Coreg 6.25 mg twice a day. 3. Crestor. 4. Ranitidine. 5. Omeprazole. 6. Fentanyl. 7. Pradaxa. REVIEW OF SYSTEMS Currently he refers no chest pain, no chest discomfort, no palpitations, no fever. PHYSICAL EXAMINATION GENERAL: Alert, fully oriented. VITAL SIGNS: Blood pressure 94/67, pulse 88, respiratory rate 18. LUNGS: Ventilated. CARDIOVASCULAR: S1, S2. No gallop. No murmur. ABDOMEN: Soft. No mass. EXTREMITIES: No edema. ELECTROCARDIOGRAM Electrocardiogram: Sinus rhythm, diffuse ST changes. LABORATORY Hemoglobin 12.2, white blood cell count 6.20. Creatinine 1.02, potassium 3.8. INR 1.1. ASSESSMENT AND RECOMMENDATION Mr. Slade received three defibrillatory shocks. The tachyarrhythmia fell in the VT zone that required tachycardia pacing or defibrillatory shock. ATP was delivered but failed to convert the patient into sinus rhythm. Analysis of the defibrillator tracing indicates possible supraventricular tachycardia. While the patient was pacing out of the tachyarrhythmia the atrial rate was consistent and there was no significant variability in the atrial heart rate. At this point my recommendation is a nuclear stress study to rule out ischemia. I am going to initiate amiodarone at 400 mg a day for seven days then 200 mg a day. The patient is on fenofibrate and I will stop the fenofibrate for now until the patient gets back to 200 mg of amiodarone a day. He will be observed. Based on the result of the nuclear stress study further decision will be taken. The case was extensively discussed with the patient. MD ARON Tineo/LEONARD /7:25 PM /7:33 AM
--- NOTE | 2017-04-01 08:40 | HHI.FPPN ---
Subjective Remarks Patient seen and examined this morning. Overnight patient experienced episode of hypotension to 74/50 with mild lightheadedness. Blood pressure responded appropriately to elevating the head of the bed which resolved the patient's symptoms. No other intervention was required. This morning the patient reports he met with cardiology last night and would like to pursue a pharmacological stress test for further evaluation. He is agreeable to examination, but is hesitant as he has felt uncomfortable during prior stress test examinations. He currently has no complaints and denies any fevers, chills, dizziness, headaches , shortness of breath, chest pain, NVD, or calf tenderness. (Darian Trevino MD R1 ) Objective Vitals Vital Signs Date Time Temp Pulse Resp B/P Pulse Ox O2 Delivery O2 Flow Rate FiO2 04/01/17 06:19 65 04/01/17 05:07 64 04/01/17 04:46 63 04/01/17 03:27 59 04/01/17 03:13 97.7 74 97/71 95 04/01/17 02:00 60 04/01/17 01:00 66 04/01/17 00:00 56 03/31/17 23:00 97.9 70 74/50 96 94/63 03/31/17 23:00 60 03/31/17 22:00 64 03/31/17 21:00 70 03/31/17 20:00 70 03/31/17 20:00 21 03/31/17 19:00 98.2 68 20 105/68 97 03/31/17 19:00 70 03/31/17 18:00 88 03/31/17 17:00 66 03/31/17 16:00 66 03/31/17 15:00 95 03/31/17 15:00 98.1 71 18 94/67 95 03/31/17 14:00 70 03/31/17 13:00 76 03/31/17 12:00 70 03/31/17 11:30 98.8 76 20 100/68 95 03/31/17 11:00 90 03/31/17 10:05 98 21 03/31/17 10:00 72 03/31/17 09:00 72 I/O 03/31/17 03/31/17 03/31/17 04/01/17 04/01/17 04/01/17 07:00 15:00 23:00 07:00 15:00 23:00 Intake Total 240 ml 600 ml 480 ml Output Total 300 ml Balance 240 ml 600 ml 180 ml Intake Oral 240 ml 600 ml 480 ml Output Urine Total 300 ml # Voids 3 4 (Darian Trevino MD R1) Result Diagram: 03/31/1715103/31/17151 Objective Remarks GENERAL: Well-developed, well-nourished 66-year-old male lying in bed in no acute distress. SKIN: Warm and dry. No rash. HEENT: Atraumatic, normocephalic with EOMI. MMM. No JVD or LAD appreciated. No rhinorrhea. CARDIOVASCULAR: Regular rate and rhythm without obvious murmurs, gallops, or rubs. ICD in place on left chest. RESPIRATORY: Clear to auscultation bilaterally no CRW. No increased work of breathing. GASTROINTESTINAL: Abdomen soft, non-tender, nondistended with positive bowel sounds. No masses appreciated. MUSCULOSKELETAL: No cyanosis or edema. Strength grossly WNL. NEURO/PSYCH: Afocal. Awake, alert, and oriented x3. Normal speech and interaction with examiner. (Darian Trevino MD R1) A/P Assessment and Plan Mr. Slade is a 66 y/o M with history of atrial fibrillation and [place] s/p 5x catheterizations with sent placement presents s/p his internal cardiac defibrillator firing x3. He will be admitted for observation and possible cardiac workup pending clinical course. Discharge Planning Pending cardiac stress test and cardiology recommendations. (Darian Trevino MD R1 ) Attending Attestation Patient seen and examined. Case reviewed and discussed with the resident team. Agree with plan of care as discussed with me and documented in the resident note. (Ronda Majano MD) Problem List: (1) Defibrillator discharge Status: Acute Plan: Patient with ICD which fired 3 times this morning without symptoms per patient report. Second time his ICD has fired with patient reporting he was asymptomatic beforehand. Per ER staff, ICD interrogation showed defibrillation administered secondary to tachycardia. Consult cardiology, appreciate recommendations Scheduled for pharmacological cardiac stress test Amiodarone 4 mg for 7 days, then transitioned to amiodarone 200 mg daily Cardiac telemetry, reviewed Echocardiogram: Pending Medications: Continue Pradaxa 150 mg twice a day Continue Coreg 6.25 mg twice a day Amiodarone 4 mg for 7 days, then transitioned to amiodarone 200 mg daily (2) Atrial fibrillation Status: Acute Plan: Patient with history of atrial fibrillation anticoagulated on Pradaxa. Currently rate controlled. Please see plan as above (3) Chronic disease Status: Acute Plan: BPHcontinue saw palmetto Hyperlipidemiacontinue rosuvastatin, fenofibrate GERDcontinue omeprazole 40 mg daily Chronic back paincontinue fentanyl patch 100 g every third day Hypertensioncontinue ramipril 2.5 mg daily (4) No contraindication to deep vein thrombosis (DVT) prophylaxis Status: Acute Plan: Patient anticoagulated on Pradaxa for atrial fibrillation (5) Nutrition, metabolism, and development symptoms Status: Acute Plan: Diet: Currently nothing by mouth in preparation for stress test Fluids: Tolerating fluids by mouth Electrolytes: Within normal limits, continue to monitor Prophylaxis: DuoNeb's when necessary for shortness of breath, Zofran when necessary for nausea or vomiting, Tylenol when necessary for pain or fever, Alyse -Colace when necessary for constipation, clonidine when necessary for BP greater than 180/100 (Darian Trevino MD R1) Darian Trevino MD R1 Apr 01, 2017 08:40 Ronda Majano MD Apr 01, 2017 16:23
[2017-04-01] MEDS: SODIUM CHLORIDE 0.9% FLUSH 10 ML FLUSH IV FLUSH SCH ×2 (09:07→20:43)
[2017-04-01] MEDS: ASPIRIN 81 MG CHEW TAB CHEW SCH (09:07)
[2017-04-01] MEDS: FAMOTIDINE 20 MG TAB PO SCH ×2 (09:08→20:43)
[2017-04-01] MEDS: AMIODARONE 200 MG TAB PO SCH (09:08)
[2017-04-01] MEDS: ATORVASTATIN 20 MG TAB PO SCH (09:08)
[2017-04-01] MEDS: DABIGATRAN ETEXILATE 150 MG CAP PO SCH ×2 (09:09→20:43)
[2017-04-01] MEDS: PANTOPRAZOLE SOD 40 MG DELAYED RELEASE TAB PO SCH (09:09)
[2017-04-01] MEDS ORDERED: REGADENOSON INJ 0.4 MG/5 ML SYR ONE (10:49)
[2017-04-01] MEDS ORDERED: ATROPINE SULFATE 1 MG/10 ML SYRINGE ONE (12:28)
[2017-04-01] MEDS ORDERED: EPINEPHrine HCL (1:10,000) 1 MG/10 ML SYRINGE ONE (12:28)
[2017-04-01] MEDS: RAMIPRIL 2.5 MG CAP PO SCH (13:15)
--- NOTE | 2017-04-01 15:05 | RADRPT ---
EXAM DATE/TIME: 04/01/2017 10:29 [facility] COMPARISON: No previous studies available for comparison. INDICATIONS : Mid chest pain with dizziness for one day. Defibrillator fired three times. Atrial fibrillation. [place] cardial infarction. DOSE: 25.1 mCi Tc99m Myoview at stress. 8.8 mCi Tc99m Myoview at rest. 0.4 mg Lexiscan STRESS SYMPTOMS: Dyspnea, chest pain and dizziness. EJECTION FRACTION: 58% MEDICAL HISTORY : Cardiovascular disease. SURGICAL HISTORY : Pacemaker. Coronary artery stent. Umbilical hernia repair. ENCOUNTER: Initial ACUITY: 1 day PAIN SCALE: 3/10 LOCATION: Midsternal chest TECHNIQUE: The patient underwent pharmacologic stress with infusion of prescribed dose. Continuous ECG tracing was monitored during stress. Gated SPECT imaging was performed after stress and conventional SPECT i maging was performed at rest. The examination was performed on a SPECT/CT scanner, both attenuation and non-corrected datasets were reviewed. FINDINGS: DISTRIBUTION: The maximum perfused segment at stress is in the inferior wall. PERFUSION STUDY: The pattern of perfusion at stress is within normal limits. GATED STUDY: There is intact wall motion and thickening without hypokinetic or dyskinetic segments. CONCLUSION: 1. No reversible perfusion defect to suggest stress induced myocardial ischemia. RISK CATEGORY: Low (<1% Annual Mortality Rate) Jaleel Fink MD on April 01, 2017 at 15:02 Board Certified Radiologist. This report was verified electronically.
[2017-04-01] MEDS: CARVEDILOL 6.25 MG TAB PO SCH (17:55)
--- NOTE | 2017-04-01 19:47 | HHI.PR ---
Subjective Remarks No tachy. Feeling better Objective Vital Signs Date Time Temp Pulse Resp B/P Pulse Ox O2 Delivery O2 Flow Rate FiO2 04/01/17 18:07 76 04/01/17 17:00 75 04/01/17 16:00 82 04/01/17 16:00 91 04/01/17 16:00 97.7 75 18 103/75 98 04/01/17 15:00 78 04/01/17 15:00 83 04/01/17 14:00 83 04/01/17 13:00 86 04/01/17 12:45 98.0 75 20 108/67 97 04/01/17 10:00 66 04/01/17 09:37 98 21 04/01/17 09:00 68 04/01/17 08:00 97.9 70 20 88/66 94 04/01/17 08:00 62 04/01/17 07:00 68 04/01/17 06:19 65 04/01/17 05:07 64 04/01/17 04:46 63 04/01/17 03:27 59 04/01/17 03:13 97.7 74 97/71 95 04/01/17 02:00 60 04/01/17 01:00 66 04/01/17 00:00 56 03/31/17 23:00 97.9 70 74/50 96 94/63 03/31/17 23:00 60 03/31/17 22:00 64 03/31/17 21:00 70 03/31/17 20:00 70 03/31/17 20:00 21 I/O 03/31/17 03/31/17 03/31/17 04/01/17 04/01/17 04/01/17 07:00 15:00 23:00 07:00 15:00 23:00 Intake Total 240 ml 600 ml 480 ml Output Total 300 ml Balance 240 ml 600 ml 180 ml Intake Oral 240 ml 600 ml 480 ml Output Urine Total 300 ml # Voids 3 4 4 # Bowel Movements 1 Result Diagram: 03/31/17 01503/31/17 0152 Imaging Alert, fully oriented Lungs: ventilated Heart: S1, S2 regular, no gallop Abdomen: soft, no mass Ext: no edema Last Impressions Myocardial Perfusion Scan Nuc Med 04/01/17 0000 Signed Impressions: Service Date/Time: Saturday, April 01, 2017 10:29 - CONCLUSION: 1. No reversible perfusion defect to suggest stress induced myocardial ischemia. RISK CATEGORY : Low (<1%% Annual Mortality Rate) Jaleel Fink MD Chest X-Ray 03/30/17 1338 Signed Impressions: Service Date/Time: Thursday, March 30, 2017 13:52 - CONCLUSION: No evidence of acute cardiopulmonary disease. Anshul Hickey MD Current Medications Medications (Trade) Dose Ordered Sig/Rosalba Route Start Time Stop Time Status Last Admin (NS Flush) 2 ml UNSCH PRN IVF 03/30/17 13:45 (NS Flush) 2 ml BID IV FLUSH 03/30/17 21:00 04/01/17 09:07 (Coreg) 6.25 mg BID PO 03/30/17 21:00 04/01/17 17:55 (Pradaxa) 150 mg BID PO 03/30/17 21:00 04/01/17 09:09 (Duragesic 100 Mcg Patch.72 Hr) 1 patch Q72H T-DERMAL 03/30/17 17:00 04/01/17 13:14 (Tricor) 145 mg DAILY PO 03/31/17 09:00 Hold 03/31/17 09:35 (Protonix) 40 mg DAILY PO 03/31/17 09:00 04/01/17 09:09 (Pepcid) 20 mg BID PO 03/30/17 21:00 04/01/17 09:08 (Lipitor) 20 mg DAILY PO 03/31/17 09:00 04/01/17 09:08 Miscellaneous Information 1 Q3D T-DERMAL 04/02/17 17:00 (Zofran Odt) 4 mg Q6H PRN PO 03/30/17 17:15 (Tylenol) 500 mg Q6H PRN PO 03/30/17 17:15 (Alyes-Colace) 2 tab BID PRN PO 03/30/17 17:15 (Catapres) 0.1 mg Q6H PRN PO 03/30/17 17:15 (Aspirin Chew) 81 mg DAILY CHEW 03/31/17 09:00 04/01/17 09:07 (Neurontin) 300 mg HS PO 03/30/17 21:00 03/31/17 21:04 (Altace) 2.5 mg DAILY PO 03/31/17 09:00 04/01/17 13:15 (Cordarone) 400 mg DAILY PO 03/31/17 19:15 04/06/17 09:01 04/01/17 09:08 (Cordarone) 200 mg DAILY PO 04/07/17 09:00 Assessment and Plan Problem List: (1) Defibrillator discharge Status: Acute Plan: No defib shock since admission (2) Ventricular tachycardia Status: Acute Plan: Nuclear stress study negative for ischemia. Amio added Meds modified due to low BP No tachy recorded. If stable , ok to in AM. Carolyn Villalba MD Apr 01, 2017 19:47
[2017-04-01] MEDS: GABAPENTIN 300 MG CAP PO SCH (20:43)
[2017-04-02] VITALS (18 sets, daily range): BP systolic 90–120; BP diastolic 60–71; PULSE 62–74; RESP 18–20; TEMP 97.3–97.9; O2SAT 94–97
--- NOTE | 2017-04-02 07:44 | PD.CARD.PN ---
Subjective Subjective Remarks Stable, no ICD shock overnight. Objective Medications Current Medications Medications (Trade) Dose Ordered Sig/Rosalba Route Start Time Stop Time Status Last Admin (NS Flush) 2 ml UNSCH PRN IVF 03/30/17 13:45 (NS Flush) 2 ml BID IV FLUSH 03/30/17 21:00 04/01/17 20:43 (Pradaxa) 150 mg BID PO 03/30/17 21:00 04/01/17 20:43 (Duragesic 100 Mcg Patch.72 Hr) 1 patch Q72H T-DERMAL 03/30/17 17:00 04/01/17 13:14 (Tricor) 145 mg DAILY PO 03/31/17 09:00 Hold 03/31/17 09:35 (Protonix) 40 mg DAILY PO 03/31/17 09:00 04/01/17 09:09 (Pepcid) 20 mg BID PO 03/30/17 21:00 04/01/17 20:43 (Lipitor) 20 mg DAILY PO 03/31/17 09:00 04/01/17 09:08 Miscellaneous Information 1 Q3D T-DERMAL 04/02/17 17:00 (Zofran Odt) 4 mg Q6H PRN PO 03/30/17 17:15 (Tylenol) 500 mg Q6H PRN PO 03/30/17 17:15 (Alyse-Colace) 2 tab BID PRN PO 03/30/17 17:15 (Catapres) 0.1 mg Q6H PRN PO 03/30/17 17:15 (Aspirin Chew) 81 mg DAILY CHEW 03/31/17 09:00 04/01/17 09:07 (Neurontin) 300 mg HS PO 03/30/17 21:00 04/01/17 20:43 (Altace) 2.5 mg DAILY PO 03/31/17 09:00 04/01/17 13:15 (Cordarone) 400 mg DAILY PO 03/31/17 19:15 04/06/17 09:01 04/01/17 09:08 (Cordarone) 200 mg DAILY PO 04/07/17 09:00 (Coreg) 3.125 mg BID PO 04/02/17 09:00 Vital Signs / I&O Vital Signs Date Time Temp Pulse Resp B/P Pulse Ox O2 Delivery O2 Flow Rate FiO2 04/02/17 07:24 97.9 67 20 103/68 95 04/02/17 06:19 62 04/02/17 05:00 70 04/02/17 04:46 69 04/02/17 04:00 64 04/02/17 03:00 65 04/02/17 03:00 97.8 65 90/60 94 04/02/17 02:00 64 04/02/17 01:00 62 04/02/17 00:00 68 04/01/17 23:00 63 04/01/17 23:00 97.7 64 90/65 93 04/01/17 22:00 60 04/01/17 21:00 64 04/01/17 20:00 72 04/01/17 19:36 21 04/01/17 19:00 77 04/01/17 19:00 98.3 68 92/50 98 04/01/17 18:07 76 04/01/17 17:00 75 04/01/17 16:00 82 04/01/17 16:00 91 04/01/17 16:00 97.7 75 18 103/75 98 04/01/17 15:00 78 04/01/17 15:00 83 04/01/17 14:00 83 04/01/17 13:00 86 04/01/17 12:45 98.0 75 20 108/67 97 04/01/17 10:00 66 04/01/17 09:37 98 21 04/01/17 09:00 68 04/01/17 08:00 97.9 70 20 88/66 94 04/01/17 08:00 62 I/O 04/01/17 04/01/17 04/01/17 04/02/17 04/02/17 04/02/17 07:00 15:00 23:00 07:00 15:00 23:00 Intake Total 480 ml 240 ml Output Total 300 ml Balance 180 ml 240 ml Intake Oral 480 ml 240 ml Output Urine Total 300 ml # Voids 4 3 # Bowel Movements 1 Physical Exam GENERAL: Well-nourished, well-developed patient. SKIN: Warm and dry. HEAD: Normocephalic. EYES: No scleral icterus. No injection or drainage. NECK: Supple, trachea midline. No JVD or lymphadenopathy. CARDIOVASCULAR: Regular rate and rhythm without murmurs, gallops, or rubs. RESPIRATORY: Breath sounds equal bilaterally. No accessory muscle use. GASTROINTESTINAL: Abdomen soft, non-tender, nondistended. EXTREMITIES: No cyanosis, or edema. NEUROLOGICAL: Awake, alert, and oriented x 3. Non-focal. Imaging Last Impressions Myocardial Perfusion Scan Nuc Med 04/01/17 0000 Signed Impressions: Service Date/Time: Saturday, April 01, 2017 10:29 - CONCLUSION: 1. No reversible perfusion defect to suggest stress induced myocardial ischemia. RISK CATEGORY : Low (<1%% Annual Mortality Rate) Jaleel Fink MD Chest X-Ray 03/30/17 1338 Signed Impressions: Service Date/Time: Thursday, March 30, 2017 13:52 - CONCLUSION: No evidence of acute cardiopulmonary disease. Anshul Hickey MD Assessment and Plan Problem List: (1) Defibrillator discharge Assessment and Plan: Tachyarrhythmia fell into the VT zone and ATP failed, patient was subsequently shocked. Per my discussion with Dr. Villalba this appears to be in atrial tachyarrhythmia and shocks were appropriate. (2) Tachyarrhythmia Assessment and Plan: No recurrent tachyarrhythmia during admission. Now on amiodarone. Will hold fenofibrate during the loading of amiodarone and resume once amiodarone dosing is at 200 mg per day. He can be discharged home from EP standpoint when cleared by the managing medical team. Follow-up with Dr. Villalba in 2 weeks Assessment and Plan Discussed with patient, RN, Henna Grubbs Apr 02, 2017 07:44
[2017-04-02] MEDS ORDERED: AMIO200T PO (08:32)
--- NOTE | 2017-04-02 08:34 | HHI.FPPN ---
Subjective Remarks Patient seen and examined this morning. No acute events overnight with vital signs stable. Patient reports he tolerated the stress test yesterday well without complication. He was instructed by cardiology to continue with amiodarone in hopes to control his heart rate. He reports that he was initially on Imuran, however at his last cardiology appointment the medication was discontinued. He reports no complaints this morning. He denies any fevers, chills, shortness breath, chest pain, NVD, abdominal pain, or calf tenderness. We discussed pending further cardiology recommendations, his possible discharge which she is agreeable to this time. (Darian Trevino MD R1) Objective Vitals Vital Signs Date Time Temp Pulse Resp B/P Pulse Ox O2 Delivery O2 Flow Rate FiO2 04/02/17 07:24 97.9 67 20 103/68 95 04/02/17 06:19 62 04/02/17 05:00 70 04/02/17 04:46 69 04/02/17 04:00 64 04/02/17 03:00 65 04/02/17 03:00 97.8 65 90/60 94 04/02/17 02:00 64 04/02/17 01:00 62 04/02/17 00:00 68 04/01/17 23:00 63 04/01/17 23:00 97.7 64 90/65 93 04/01/17 22:00 60 04/01/17 21:00 64 04/01/17 20:00 72 04/01/17 19:36 21 04/01/17 19:00 77 04/01/17 19:00 98.3 68 92/50 98 04/01/17 18:07 76 04/01/17 17:00 75 04/01/17 16:00 82 04/01/17 16:00 91 04/01/17 16:00 97.7 75 18 103/75 98 04/01/17 15:00 78 04/01/17 15:00 83 04/01/17 14:00 83 04/01/17 13:00 86 04/01/17 12:45 98.0 75 20 108/67 97 04/01/17 10:00 66 04/01/17 09:37 98 21 04/01/17 09:00 68 I/O 04/01/17 04/01/17 04/01/17 04/02/1714/17 6/14/17 07:00 15:00 23:00 07:00 15:00 23:00 Intake Total 480 ml 240 ml Output Total 300 ml Balance 180 ml 240 ml Intake Oral 480 ml 240 ml Output Urine Total 300 ml # Voids 4 3 # Bowel Movements 1 (Darian Trevino MD R1) Result Diagram: 03/31/17 0152 03/31/17 0152 Objective Remarks GENERAL: Well-developed, well-nourished 66-year-old male sitting up and is requiring no acute distress. SKIN: Warm and dry. No rash. HEENT: Atraumatic, normocephalic with EOMI. MMM. No JVD or LAD appreciated. No rhinorrhea. CARDIOVASCULAR: Regular rate and rhythm without obvious murmurs, gallops, or rubs. ICD in place on left chest. RESPIRATORY: Clear to auscultation bilaterally no CRW. No increased work of breathing. GASTROINTESTINAL: Abdomen soft, non-tender, nondistended with positive bowel sounds. No masses appreciated. MUSCULOSKELETAL: No cyanosis or edema. Strength grossly WNL. NEURO/PSYCH: Afocal. Awake, alert, and oriented x3. Normal speech and interaction with examiner. (Darian Trevino MD R1) A/P Assessment and Plan Mr. Slade is a 66 y/o M with history of atrial fibrillation and RI s/p 5x catheterizations with sent placement presents s/p his internal cardiac defibrillator firing x3. He was admitted for observation and a nuclear stress test per cardiology. Discharge Planning Today pending final cardiology recommendations. (Darian Trevino MD R1) Attending Attestation Patient seen and examined. Case reviewed and discussed with the resident team. Agree with plan of care as discussed with me and documented in the resident note. (Ronda Majano MD) Problem List: (1) Defibrillator discharge Status: Acute Plan: Patient with ICD which fired 3 times this morning without symptoms per patient report. Second time his ICD has fired with patient reporting he was asymptomatic beforehand. Per ER staff, ICD interrogation showed defibrillation administered secondary to tachycardia. Consult cardiology, appreciate recommendations Scheduled for pharmacological cardiac stress test Amiodarone 400 mg for 7 days, then transitioned to amiodarone 200 mg daily Cardiac telemetry, reviewed Echocardiogram: Pending Medications: Continue Pradaxa 150 mg twice a day Decreased Coreg 3.125 mg twice a day Amiodarone 400 mg for 7 days, then transitioned to amiodarone 200 mg daily ( Hold Fenofibrate unitl patient on Amidoarone 200mg QD) (2) Atrial fibrillation Status: Acute Plan: Patient with history of atrial fibrillation anticoagulated on Pradaxa. Currently rate controlled. Please see plan as above (3) Chronic disease Status: Acute Plan: BPHcontinue saw palmetto Hyperlipidemiacontinue rosuvastatin, fenofibrate (Held until dose of Amiodarone is changed to 200mg daily) GERDcontinue omeprazole 40 mg daily Chronic back paincontinue fentanyl patch 100 g every third day Hypertensioncontinue ramipril 2.5 mg daily (4) No contraindication to deep vein thrombosis (DVT) prophylaxis Status: Acute Plan: Patient anticoagulated on Pradaxa for atrial fibrillation (5) Nutrition, metabolism, and development symptoms Status: Acute Plan: Diet: Currently nothing by mouth in preparation for stress test Fluids: Tolerating fluids by mouth Electrolytes: Within normal limits, continue to monitor Prophylaxis: DuoNeb's when necessary for shortness of breath, Zofran when necessary for nausea or vomiting, Tylenol when necessary for pain or fever, Alyse -Colace when necessary for constipation, clonidine when necessary for BP greater than 180/100 (Darian Trevino MD R1) Darian Trevino MD R1 Apr 02, 2017 08:34 Ronda Majano MD Apr 02, 2017 11:55
[2017-04-02] MEDS ORDERED: CARVEDILOL 3.125 MG TAB PO SCH (09:00)
[2017-04-02] MEDS: AMIODARONE 200 MG TAB PO SCH (09:30)
[2017-04-02] MEDS: SODIUM CHLORIDE 0.9% FLUSH 10 ML FLUSH IV FLUSH SCH (09:30)
[2017-04-02] MEDS: ASPIRIN 81 MG CHEW TAB CHEW SCH (09:30)
[2017-04-02] MEDS: ATORVASTATIN 20 MG TAB PO SCH (09:31)
[2017-04-02] MEDS: PANTOPRAZOLE SOD 40 MG DELAYED RELEASE TAB PO SCH (09:31)
[2017-04-02] MEDS: FAMOTIDINE 20 MG TAB PO SCH (09:31)
[2017-04-02] MEDS: DABIGATRAN ETEXILATE 150 MG CAP PO SCH (09:31)
[2017-04-02] MEDS ORDERED: AMIO400T PO (10:21)
[2017-04-02] MEDS ORDERED: CARV3.125 PO (10:21)
--- NOTE | 2017-04-02 10:42 | HHI.DS ---
Discharge Summary Admission Date Mar 30, 2017 at 15:42 Discharge Date: Apr 02, 2017 Admitting Diagnosis defibrillator fired 3 (1) Defibrillator discharge Diagnosis: Principal Plan: Patient with ICD which fired 3 times this morning without symptoms per patient report. Second time his ICD has fired with patient reporting he was asymptomatic beforehand. Per ER staff, ICD interrogation showed defibrillation administered secondary to tachycardia. Consult cardiology, appreciate recommendations Scheduled for pharmacological cardiac stress test Amiodarone 400 mg for 7 days, then transitioned to amiodarone 200 mg daily Cardiac telemetry, reviewed Echocardiogram: Pending Medications: Continue Pradaxa 150 mg twice a day Decreased Coreg 3.125 mg twice a day Amiodarone 400 mg for 7 days, then transitioned to amiodarone 200 mg daily ( Hold Fenofibrate unitl patient on Amidoarone 200mg QD) (2) Atrial fibrillation Diagnosis: Secondary Plan: Patient with history of atrial fibrillation anticoagulated on Pradaxa. Currently rate controlled. Please see plan as above (3) Chronic disease Diagnosis: Secondary Plan: BPHcontinue saw palmetto Hyperlipidemiacontinue rosuvastatin, fenofibrate (Held until dose of Amiodarone is changed to 200mg daily) GERDcontinue omeprazole 40 mg daily Chronic back paincontinue fentanyl patch 100 g every third day Hypertensioncontinue ramipril 2.5 mg daily (4) No contraindication to deep vein thrombosis (DVT) prophylaxis Diagnosis: Principal Plan: Patient anticoagulated on Pradaxa for atrial fibrillation (5) Nutrition, metabolism, and development symptoms Diagnosis: Principal Plan: Diet: Currently nothing by mouth in preparation for stress test Fluids: Tolerating fluids by mouth Electrolytes: Within normal limits, continue to monitor Prophylaxis: DuoNeb's when necessary for shortness of breath, Zofran when necessary for nausea or vomiting, Tylenol when necessary for pain or fever, Alyse -Colace when necessary for constipation, clonidine when necessary for BP greater than 180/100 Brief History Mr. Slade is a 66 y/o M with history of atrial fibrillation and [place] s/p 5x catheterizations with sent placement presents s/p his internal cardiac defibrillator firing x3. He states that earlier today he was getting out of the shower when his ICD fired 3 times in a row approximately 3 minutes apart. He was able to walk out of the bathroom and call 911 before the ICD fired the third and final time. Before the ICD went off he denied any symptoms such as tachycardia, angina, or palpitations. He was "dizzy" after the episode, but did not lose consciousness or fall. He reports that this is the second time his ICD has gone off. The first time the ICD fired 5 times, and again he reports he was asymptomatic at that time. He is a patient of Dr. Warner, cardiology. CBC/BMP: 03/31/17 0152 03/31/17 0152 Significant Findings Laboratory Tests Test 03/30/17 03/30/17 03/31/17 13:55 20:09 01:52 Red Blood Count 4.05 MIL/MM3 3.81 MIL/MM3 (4.50-5.90) (4.50-5.90) Hematocrit 37.9 % 35.6 % (39.0-51.0) (39.0-51.0) Monocytes (%) (Auto) 9.7 % (0.0-8.0) Eosinophils (%) (Auto) 5.3 % (0.0-4.0) Prothrombin Time 11.7 SEC (9.8-11.6) Activated Partial 31.3 SEC Thromboplast Time (24.3-30.1) Estimat Glomerular Filtration 62 ML/MIN (>89) 74 ML/MIN (>89) Rate Calcium Level 8.4 MG/DL 8.2 MG/DL (8.5-10.1) (8.5-10.1) Total Creatine Kinase 32 U/L (39-308) 33 U/L (39-308) 31 U/L (39-308) Troponin I LESS THAN 0.02 NG/ML (0.02-0.05) Hemoglobin 12.2 GM/DL (13.0-17.0) Anion Gap 4 MEQ/L (5-15) Blood Urea Nitrogen 19 MG/DL (7-18) PE at Discharge GENERAL: Well-developed, well-nourished 66-year-old male sitting up and is requiring no acute distress. SKIN: Warm and dry. No rash. HEENT: Atraumatic, normocephalic with EOMI. MMM. No JVD or LAD appreciated. No rhinorrhea. CARDIOVASCULAR: Regular rate and rhythm without obvious murmurs, gallops, or rubs. ICD in place on left chest. RESPIRATORY: Clear to auscultation bilaterally no CRW. No increased work of breathing. GASTROINTESTINAL: Abdomen soft, non-tender, nondistended with positive bowel sounds. No masses appreciated. MUSCULOSKELETAL: No cyanosis or edema. Strength grossly WNL. NEURO/PSYCH: Afocal. Awake, alert, and oriented x3. Normal speech and interaction with examiner. Hospital Course Patient was admitted to the [facility] for further cardiac monitoring. Evaluation of ICD showed ventricular tachycardia requiring defibrillator discharge. Cardiology was consulted for further evaluation who recommended nuclear stress test to evaluate for ischemia. Nuclear stress test was performed without complications and indicated no evidence of ischemia. Patient was started on amiodarone 400 mg daily with plans to transition to 200 mg daily after 1 week. Of note patient had bradycardia, hypotension, and mild dizziness on hospital day 2 after initiation of Amiodarone. Therefore his Coreg was decreased to 3.125 mg twice a day to assist his BP and HR. Otherwise the patient's hospital stay was without complications and was cleared for discharge by cardiology on hospital day 4 (04/02). Patient to be discharged home on amiodarone 400 mg daily for 4 more days (total 7 days). He then will take amiodarone 200 mg daily thereafter. His carvedilol was decreased to 3.125 mg twice a day, but otherwise all of his home medications are to be continued at discharge except for fenofibrate as he is starting amiodarone. He was instructed to follow-up with his PCP and cardiology within 1 week for further reevaluation. Pt Condition on Discharge: Stable Discharge Disposition: Discharge Home Discharge Instructions DIET: Follow Instructions for: Heart Healthy Diet Speech Therapy-Diet Recommends: Regular Activities you can perform: Regular-No Restrictions Follow up Referrals: Cardiology - 1 Week PCP Follow-up - 1 Week New Medications: Amiodarone (Amiodarone) 200 Mg Tab 200 MG PO DAILY Regulate Heart Beat #30 Ref 1 TAB Amiodarone (Amiodarone) 400 Mg Tab 400 MG PO DAILY Regulate Heart Beat #4 Ref 0 TAB Carvedilol (Coreg) 3.125 Mg Tab 3.125 MG PO BID #60 Ref 1 TAB Continued Medications: Aspirin (Aspirin) 81 Mg Chew 81 MG CHEW DAILY Ref 0 TAB Dabigatran (Pradaxa) 150 Mg Cap 150 MG PO BID Blood Clot Prevention #60 Ref 0 CAP Diltiazem ER 24 HR (Diltiazem ER 24 HR) 180 Mg Loulou 180 MG PO DAILY #30 Ref 0 TAB Fentanyl Patch 72 HR (Fentanyl Patch 72 HR) 100 Mcg/Hr Patch 100 MCG T-DERMAL Q72H Remove old patch when new one placed. Pain Management #10 Ref 0 PATCH Gabapentin (Gabapentin) 300 Mg Cap 300 MG PO HS #30 Ref 0 CAP Omeprazole (Omeprazole) 40 Mg Cap 40 MG PO DAILY #30 Ref 0 CAP Ramipril (Ramipril) 2.5 Mg Cap 2.5 MG PO DAILY #30 Ref 0 CAP Ranitidine (Ranitidine) 150 Mg Cap 150 MG PO BID #60 Ref 0 CAP Rosuvastatin (Crestor) 10 Mg Tab 10 MG PO DAILY Cholesterol Management #30 Ref 0 TAB Saw Fisher (Serenoa Repens) (Saw Fisher (Serenoa Repens)) 450 Mg Cap 450 MG PO DAILY Ref 0 CAP Discontinued Medications: Carvedilol (Carvedilol) 6.25 Mg Tab 6.25 MG PO BID #60 Ref 0 TAB Fenofibrate (Fenofibrate) 160 Mg Tab 160 MG PO DAILY #30 Ref 0 TAB Darian Trevino MD R1 Apr 02, 2017 10:42
[2017-04-02] MEDS ORDERED: REMOVE OLD DURAGESIC (FENTANYL) PATCH T-DERMAL SCH (17:00)
[2017-04-07] MEDS ORDERED: AMIODARONE 200 MG TAB PO SCH (09:00)
== END 2017-04-02 14:00 | disposition home or self-care (01) | DRG 310 ==
LOC: NEPC 13:26 → NEDA 15:42 → HCIS 18:38
PROVIDERS: ADMIT Family Medicine; ATTEND Family Medicine
DX: I47.2 Ventricular tachycardia (principal); J44.9 Chronic obstructive pulmonary disease, unspecified; I10 Essential (primary) hypertension; I25.10 Atherosclerotic heart disease of native coronary artery without angina pectoris; N40.0 Benign prostatic hyperplasia without lower urinary tract symptoms; F17.210 Nicotine dependence, cigarettes, uncomplicated; K21.9 Gastro-esophageal reflux disease without esophagitis; G89.29 Other chronic pain; M54.5 Low back pain; E78.5 Hyperlipidemia, unspecified; I48.91 Unspecified atrial fibrillation; I25.2 Old myocardial infarction; Z95.810 Presence of automatic (implantable) cardiac defibrillator; Z95.1 Presence of aortocoronary bypass graft; Z79.01 Long term (current) use of anticoagulants; Z95.5 Presence of coronary angioplasty implant and graft
CPT/HCPCS: 71010; 78452; 80048; 80053; 82550; 83735; 83880; 84484; 85025; 85027; 85610; 85730; 93005; 93017; 93306; 99285; A9502; J0171; J0461; J2785